=== PATIENT | female | born 1980 | race Caucasian/White ===

== ENCOUNTER 2019-03-11 19:54 | Emergency (ER) ==
[2019-03-11 20:01] VITALS: TEMP 98.2; BMI 43.7
[2019-03-11] MEDS ORDERED: MOTRIN PO STA (20:13)
--- NOTE | 2019-03-11 20:46 | ED.PDOC ---
General ED Provider: Dr. LILA GARCIA Chief Complaint: Ankle Pain/Injury Stated Complaint: Patient is a 39 year old female who states she fell in a small hole twisting her left ankle yesterday Time Seen by Physician: 20:15 Mode of Arrival: Wheelchair Information Source: Patient Exam Limitations: No limitations Primary Care Provider: CURTIS SULLIVAN Nursing and Triage Documentation Reviewed and Agree: Yes Does patient meet sepsis criteria?: No System Inflammatory Response Syndrome: Not Applicable Sepsis Protocol: For patient's 13 years and over: Temp is 96.8 and below OR 101 and greater Pulse >90 BPM Resp >20/minute Acutely Altered Mental Status Are patient's symptoms suggestive of a new infection, such as: -Pneumonia -Skin, Soft Tissue -Endocarditis -UTI -Bone, Joint Infection -Implantable Device -Acute Abdominal Infection -Wound Infection -Meningitis -Blood Stream Catheter Infection -Unknown Musculoskeletal Complaint Exam - Ankle/Foot Complaint/Exam Location of Injury: Reports: Left, Ankle, Foot Mechanism of Injury: Reports: Trauma Onset/Duration: 1 day Symptoms Are: Reports: Still present Onset of Pain: Reports: Immediate Initial Severity: Severe Current Severity: Moderate Location: Reports: Diffuse Character: Reports: Aching, Throbbing Aggravating: Reports: Movement, Weight bearing, Prolonged standing Able to Bear Weight: Yes (but hobbles around ) Associated Signs and Symptoms: Reports: Swelling, Bruising. Denies: Redness, Fever, Weakness, Numbness, Tingling Related History: Denies: Similar episode, Occupational injury Gout Risk Factors: Reports: None Lower Extremity Findings: Present: Tenderness, Limited range of motion Achilles Tendon Abnormality: No Tenderness: Present: Lateral malleolus, Midfoot Limited Range of Motion: Present: Inversion, Eversion, Dorsiflexion, Plantarflexion Differential Diagnosis: Sprain, Strain, Tendonitis Review of Systems - Review Of Systems Constitutional: Reports: No symptoms Eyes: Reports: No symptoms Ears, Nose, Mouth, Throat: Reports: No symptoms Respiratory: Reports: No symptoms Cardiac: Reports: No symptoms GI: Reports: No symptoms : Reports: No symptoms Musculoskeletal: Reports: Joint pain Skin: Reports: No symptoms Neurological: Reports: No symptoms Endocrine: Reports: No symptoms Hematologic/Lymphatic: Reports: No symptoms All Other Systems: Reviewed and Negative Past Medical History - Past Medical History Previously Healthy: Yes Endocrine: Reports: None Cardiovascular: Reports: None Respiratory: Reports: Asthma Hematological: Reports: None Gastrointestinal: Reports: Gallstones Genitourinary: Reports: None Neuro/Psych: Reports: Anxiety Musculoskeletal: Reports: None Cancer: Reports: None Last Menstrual Period: hyst 2015 - Surgical History General Surgical History: Reports: Hysterectomy, Cholecystectomy, Other (Lasix surgery ) - Family History Family History: Reports: Unknown - Social History Smoking Status: Never smoker Hx Substance Use: No Alcohol Screening: None - Immunizations Tetanus Shot up to Date: Yes (2019) Physical Exam - Physical Exam Appearance: Well-appearing, Obese Pain Distress: Moderate Eyes: Conjunctiva clear ENT: Nose normal, Oropharynx normal Respiratory: Airway patent, Breath sounds clear, Breath sounds equal, Respirations nonlabored Cardiovascular: RRR, Pulses normal, No rub, No murmur Musculoskeletal: Normal strength, ROM intact, No calf tenderness, Edema (Left Ankle ) Skin: Warm, Dry, Normal color Neurological: Sensation intact, Motor intact, Reflexes intact, Cranial nerves intact, Alert, Oriented Psychiatric: Affect appropriate, Mood appropriate Interpretation - Radiology Interpretation Radiology Interpretation By: Radiologist Radiology Results: Negative (Except mild soft tissue swelling) Exam Interpreted: Other (Foot and ankle ) Re-Evaluation - Re-Evaluation Time of Re-Evaluation: 21:04 Status: Improved Vital Signs Stable: Yes Critical Care Note - Critical Care Note Total Time (mins): 0 Course - Course Orders, Labs, Meds: Orders Category Date Time Status Air cast [ED SPLINT APPLICATION] .ONCE EMERGENCY 03/11/19 20:57 Active Ice [ED APPLY ICE AFFECTED AREA] .ONCE EMERGENCY 03/11/19 20:13 Active Ibuprofen [Motrin] MEDS 03/11/19 20:13 Discontinued 800 mg PO ONCE STA ANKLE, LEFT MIN 3 VIEWS Stat RADS 03/11/19 20:11 Completed FOOT, LEFT 3 VIEWS Stat RADS 03/11/19 20:13 Completed Medications Discontinued Medications Generic Name Dose Route Start Last Admin Trade Name Freq PRN Reason Stop Dose Admin Ibuprofen 800 mg 03/11/19 20:13 03/11/19 20:21 Motrin PO 03/11/19 20:14 800 mg ONCE STA Administration Vital Signs: Temp Pulse Resp BP Pulse Ox 03/11/19 20:46 140/90 03/11/19 19:54 98.2 F 100 H 20 174/117 H 96 Departure - Departure Time of Disposition: 21:04 Disposition: HOME SELF-CARE Discharge Problem: Left ankle sprain Qualifiers: Encounter type: initial encounter Involved ligament of ankle: unspecified ligament Qualified Code(s): S93.402A - Sprain of unspecified ligament of left ankle, initial encounter Instructions: Ankle Sprain (ED) Condition: Stable Pt referred to PMD for follow-up: Yes IPMP verified?: No Additional Instructions: Keep foot elevated while in bed. Follow up with PCP in 3-5 days Use air cast for comfort Take Medications. Prescriptions: Ibuprofen [Motrin] 600 mg PO Q6H PRN #30 tablet PRN Reason: Analgesia Allergies/Adverse Reactions: Allergies adhesive Adverse Reaction (Verified 03/11/19 20:02) states, "redness then pulls skin off" erythromycin base Adverse Reaction (Verified 03/11/19 20:01) Hives Home Medications: Ambulatory Orders Buspirone HCl [Buspar] 10 mg PO TID 03/11/19 Ergocalciferol (Vitamin D2) [Vitamin D2] 50,000 unit PO DAILY 03/11/19 Escitalopram Oxalate [Lexapro] 20 mg PO DAILY 03/11/19 Ibuprofen [Motrin] 600 mg PO Q6H PRN #30 tablet 03/11/19 Disposition Discussed With: Patient
[2019-03-11 20:47] VITALS: BP 140/90
--- NOTE | 2019-03-11 20:47 | DI ---
EXAM: Left ankle three views HISTORY: Fall COMPARISON: None. FINDINGS: The ankle mortise and talar dome are intact. No acute fracture or dislocation. Swelling is noted anteriorly and laterally. There are plantar and retrocalcaneal spurs. IMPRESSION: Anterolateral soft tissue swelling without acute findings
--- NOTE | 2019-03-11 20:48 | DI ---
EXAM: The left foot three views HISTORY: Fall COMPARISON: None. FINDINGS: There is no acute fracture or dislocation. There are small plantar and retrocalcaneal spu rs noted IMPRESSION: No acute findings.
== END 2019-03-11 21:13 | disposition home or self-care (01) ==
LOC: ED 19:54
DX: S93.402A Sprain of unspecified ligament of left ankle, initial encounter (principal); X50.1XXA Overexertion from prolonged static or awkward postures, initial encounter
CPT/HCPCS: 99283